=== PATIENT | male | born 1995 | race Caucasian/White ===

== ENCOUNTER 2018-07-22 13:00 | Emergency (ER) | payer OTHER, MEDICAID, SELFPAY ==
--- NOTE | 2018-07-22 | DI.RAD.S_ITS ---
PROCEDURE: XR ANKLE RT MIN 3V INDICATIONS: PAIN TECHNIQUE: 3 views of the ankle were acquired. COMPARISON: None. FINDINGS: Bones: No fractures or dislocations. Ankle mortise is normally aligned. No suspicious bony lesions. Soft tissues: No tibiotalar joint effusion. Achilles tendon appears normal. IMPRESSION: No trauma found. Dictated by: Albaro Mora M.D. on 07/22/2018 at 13:30 Approved by: Albaro Mora M.D. on 07/22/2018 at 13:31
[2018-07-22 14:00] VITALS: BP 112/66; PULSE 74; RESP 16; TEMP 36.6; O2SAT 100
--- NOTE | 2018-07-22 14:06 | DI.RAD.S_ITS ---
PROCEDURE: XR CALCANEOUS LT MIN 2V INDICATIONS: pain TECHNIQUE: Two views of the calcaneus were acquired. COMPARISON: None. FINDINGS: Bones: There is cortical irregularity in the anterior lip of the distal tibia at the tibiotalar joint. There are subtle clinical step off in the anterior process of calcaneus. No suspicious bony lesions. Soft tissues: No suspicious calcifications. Achilles tendon appears normal. IMPRESSION: Cortical irregularity is noted in the anterior lip of the distal tibia at the tibiotalar joint. There is also subtle cortical step-off in the anterior process of calcaneus. Cannot rule out fractures. Please correlate with focal pain/tenderness. If clinically indicated, CT may be helpful. Dictated by: Robbin Garvey M.D. on 07/22/2018 at 14:31 Approved by: Robbin Garvey M.D. on 07/22/2018 at 14:40
[2018-07-22 16:21] VITALS: PULSE 72
--- NOTE | 2018-07-22 16:37 | ED_ITS ---
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 He states that since then, he has had pain and difficulty walking which is progressively getting worse, came in to have this evaluated. He denies any other injury or pain elsewhere. He states he has been taking some Aleve for pain but getting harder to perform. He has not noted swelling in the last few days, he states he does not think it is weakness that stops him from being able to walk normally, just pain. No paresthesias or other new complaints Review of Systems <Whitney Can PA-C - Last Filed: 07/22/18 22:18> Review of Systems ROS Unobtainable: All systems reviewed & are unremarkable except as noted in HPI and below PFSH <Whitney Can PA-C - Last Filed: 07/22/18 22:18> Medical History Healthy adult male (Chronic) No pertinent family history (Chronic) Surgical History No pertinent past surgical history (Chronic) Social History Smoking Status: Smoker, status unknown Social History Smoking Status: Smoker, status unknown Exam <Whitney Can PA-C - Last Filed: 07/22/18 22:18> Narrative Exam Narrative: GENERAL APPEARANCE: Patient sitting comfortably, in no distress. LUNGS: Clear to auscultation bilaterally. HEART: Regular rate and rhythm without murmur, normal S1, S2, no S3 or S4. EXTREMITIES: No cyanosis or edema, left PT and DP pulses 2+. No calf tenderness NEUROLOGIC: Sensation grossly intact bilateral lower extremities MUSCULOSKELETAL: Left ankle there is no effusion. He has slightly reduced plantar and dorsiflexion of the toes but strength is intact against resistance. Achilles is intact by palpation. No obvious laxity in the ankle. He is tender over the mid to posterior plantar surface of the heel as well as the lateral ankle at the fibular border. Initial Vital Signs Initial Vital Signs: Vital Signs Temperature 97.8 F 07/22/18 14:00 Pulse Rate 74 07/22/18 14:00 Respiratory Rate 16 07/22/18 14:00 Blood Pressure 112/66 07/22/18 14:00 Pulse Oximetry 100 07/22/18 14:00 <Shanice Uriostegui DO - Last Filed: 07/23/18 08:52> Initial Vital Signs Initial Vital Signs: Vital Signs Temperature 97.8 F 07/22/18 14:00 Pulse Rate 74 07/22/18 14:00 Respiratory Rate 16 07/22/18 14:00 Blood Pressure 112/66 07/22/18 14:00 Pulse Oximetry 100 07/22/18 14:00 Course <Whitney Can PA-C - Last Filed: 07/22/18 22:18> Additional Information: Patient is able to ambulate comfortably in a walking boot, 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 Follow up with PCP next week to determine whether improving as expected or may need further workup with Ortho/MRI. He is agreeable Orders Ordered: Discontinued Medications Ibuprofen (Advil) 800 mg PO NOW ONE Stop: 07/22/18 16:53 Last Admin: 07/22/18 17:20 Dose: 800 mg Vital Signs - 8 hr 07/22/18 16:21 Pulse Rate [Left Dorsalis Pedis] 72 <Shanice Uriostegui DO - Last Filed: 07/23/18 08:52> Orders Ordered: Discontinued Medications Ibuprofen (Advil) 800 mg PO NOW ONE Stop: 07/22/18 16:53 Last Admin: 07/22/18 17:20 Dose: 800 mg Vital Signs - 8 hr 07/22/18 16:21 Pulse Rate [Left Dorsalis Pedis] 72 MDM - Extremity Injury (Lower) <LAXMI Capps Last Filed: 07/22/18 22:18> Imaging Data ankle: Radiologist's impression: Kika Gleasonshane Burger 22 M [address] [address] XRay Report Signed Patient: Robbin GleasonMR#: [id number] : 1995Acct:[id number] Age/Sex: 22 / MDate of Service: 07/22/18 Loc: ED Accession Number: [id number] Procedure: XR ankle RT min 3V Ordering Provider: Whitney Can P.A-C PROCEDURE: XR ANKLE RT MIN 3V INDICATIONS: PAIN TECHNIQUE: 3 views of the ankle were acquired. COMPARISON: None. FINDINGS: Bones: No fractures or dislocations. Ankle mortise is normally aligned. No suspicious bony lesions. Soft tissues: No tibiotalar joint effusion. Achilles tendon appears normal. IMPRESSION: No trauma found. Dictated by: Albaro Mora M.D. on 07/22/2018 at 13:30 Approved by: Albaro Mora M.D. on 07/22/2018 at 13:31 [place] [address] XRay Report Signed Patient: Robbin GleasonMR#: [id number] : 1995Acct:[id number] Age/Sex: 22 / MDate of Service: 07/22/18 Loc: ED Accession Number: [id number] Procedure: XR calcaneus LT min 2V Ordering Provider: Whitney Can P.A-C PROCEDURE: XR CALCANEOUS LT MIN 2V INDICATIONS: pain TECHNIQUE: Two views of the calcaneus were acquired. COMPARISON: None. FINDINGS: Bones: There is cortical irregularity in the anterior lip of the distal tibia at the tibiotalar joint. There are subtle clinical step off in the anterior process of calcaneus. No suspicious bony lesions. Soft tissues: No suspicious calcifications. Achilles tendon appears normal. IMPRESSION: Cortical irregularity is noted in the anterior lip of the distal tibia at the tibiotalar joint. There is also subtle cortical step-off in the anterior process of calcaneus. Cannot rule out fractures. Please correlate with focal pain/tenderness. If clinically indicated, CT may be helpful. Dictated by: Robbin Garvey M.D. on 07/22/2018 at 14:31 Approved by: Robbin Garvey M.D. on 07/22/2018 at 14:[address]: Radiologist's impression: 27 Whitney Can PA-C Find Patient Imaging Robbin Gleason 22 M 1995 ACTIVITY DATE EXAM STATUS AUTHOR 07/22/18 16:52 Signed Corby Perdue 07/22/18 14:06 Signed Jace Garvey ORDER STATUS ORDER START ORDER DETAIL XR ankle RT min 3V Completed 07/22/[address] [address] [address] Scan Report Signed Patient: Robbin Gleason#: [id number] : 1995Acct:[id number] Age/Sex: 22 / MDate of Service: 07/22/18 Loc: ED Accession Number: [id number] Procedure: CT LE LT wo con Ordering Provider: Whitney Can P.A-C PROCEDURE: CT LE LT W CON INDICATIONS: heel and fibular pain with possible fracture on x-ray. TECHNIQUE: Noncontrast 1-1.5 mm axial sections acquired from above the tibiotalar joint to the bottom of the calcaneus, with coronal and sagittal reformats. COMPARISON: [facility], CR, XR CALCANEOUS LT MIN 2V, 07/22/2018, 14:02. [facility], CR, XR ANKLE RT MIN 3V, 07/22/2018, 14:07. FINDINGS: Image quality: Excellent. Bones: No fractures or subluxation. Mild bony irregularity anteriorly along the distal tibia is compatible with mild tibiotalar joint degeneration. Soft tissues: No tibiotalar joint effusion. There is mild saphenous fat stranding along the plantar aspect of the hindfoot overlying the calcaneus. The plantar fascia appears slightly thickened proximally although evaluation is limited on CT. The Achilles tendon appears intact. The visualized flexor, extensor, and peroneal tendons appear intact. IMPRESSION: 1. No fracture or subluxation. 2. Mild subcutaneous edema along the plantar aspect of the hindfoot is nonspecific but may reflect sequelae of plantar fasciitis given its location. Dictated by: Corby Perdue M.D. on 07/22/2018 at 16:10 Approved by: Corby Perdue M.D. on 07/22/2018 at 16:14 Discharge Plan Departure Patient Disposition: Home Clinical Impression: Ankle sprain and strain Discharge Date/Time: 07/22/18 18:20 Interventions: ED Discharge Assessment Last Done: 07/22/18 18:18 Instructions: DI for Ankle Sprain Activity Restrictions/Additional Instructions: You do not appear to have a broken bone on your scan today, however there is some inflammation and swelling in your foot and ankle area. The tendons appear to be intact, and this may be due to sprain/strain, however you need to have follow-up on this to make sure you do not need any other testing or an orthoped ics consult. Please wear the walking boot that we gave you whenever you are bearing weight, and follow-up with your PCP next week to assess your progress and determine whether to do any further workup. Please take your Aleve, 2 tabs twice daily, which is equivalent to prescription dosing. Please stay off of work until your follow-up with your PCP unless you can dance in the boot! Return if you have any acutely worsening symptoms Referrals: Betina Stovall ARNP [Non-Staff] - <Shanice Uriostegui DO - Last Filed: 07/23/18 08:52> Cosign ED Attending Cosignature Attestation: I was immediately available in the department for consultation. This documentation has been reviewed and I agree with assessment and plan. Supervised by Shanice Uriostegui DO
--- NOTE | 2018-07-22 16:52 | DI.CT.S_ITS ---
PROCEDURE: CT LE LT W CON INDICATIONS: heel and fibular pain with possible fracture on x-ray. TECHNIQUE: Noncontrast 1-1.5 mm axial sections acquired from above the tibiotalar joint to the bottom of the calcaneus, with coronal and sagittal reformats. COMPARISON: [facility], CR, XR CALCANEOUS LT MIN 2V, 07/22/2018, 14:02. [facility], CR, XR ANKLE RT MIN 3V, 07/22/2018, 14:07. FINDINGS: Image quality: Excellent. Bones: No fractures or subluxation. Mild bony irregularity anteriorly along the distal tibia is compatible with mild tibiotalar joint degeneration. Soft tissues: No tibiotalar joint effusion. There is mild saphenous fat stranding along the plantar aspect of the hindfoot overlying the calcaneus. The plantar fascia appears slightly thickened proximally although evaluation is limited on CT. The Achilles tendon appears intact. The visualized flexor, extensor, and peroneal tendons appear intact. IMPRESSION: 1. No fracture or subluxation. 2. Mild subcutaneous edema along the plantar aspect of the hindfoot is nonspecific but may reflect sequelae of plantar fasciitis given its location. Dictated by: Corby Perdue M.D. on 07/22/2018 at 16:10 Approved by: Corby Perdue M.D. on 07/22/2018 at 16:14
[2018-07-22] MEDS: IBUPROFEN 400 MG TABLET 800 MG PO (17:20)
== END 2018-07-22 18:20 | disposition home or self-care (01) ==
PROVIDERS: Emergency Provider Internal Medicine
DX: S93.402A Sprain of unspecified ligament of left ankle, initial encounter (principal); W17.89XA Other fall from one level to another, initial encounter
CPT/HCPCS: 73610; 73650; 73700; 99282; 99284